=== PATIENT | female | born 1960 | race Caucasian/White ===

== ENCOUNTER 2023-11-26 01:30 | Inpatient (IN) | payer MEDICARE, OTHER ==
[~2023-11-26] VITALS: Ht 162.6 cm; Wt 52.2 kg
[2023-11-26] MEDS ORDERED: methylPREDNISolone SOD SUCC 125 MG/2ML VIAL ONE (01:33)
[2023-11-26] MEDS ORDERED: IPRATROPIUM NEB FS 0.5 MG/2.5 ML AMPUL.NEB ONE (01:34)
[2023-11-26] MEDS ORDERED: ALBUTEROL FS 2.5 MG/3 ML VIAL.NEB ONE (01:34)
[2023-11-26] MEDS ORDERED: NALOXONE HCL 0.4 MG/ML AMPUL ONE (01:36)
[2023-11-26] MEDS ORDERED: ONDANSETRON HCL/PF 4 MG/2 ML VIAL ONE (01:36)
[2023-11-26] MEDS: ONDANSETRON HCL/PF 4 MG/2 ML VIAL IVP ONE (02:05)
[2023-11-26] MEDS: NALOXONE HCL 0.4 MG/ML AMPUL IV ONE (02:05)
[2023-11-26] MEDS: methylPREDNISolone SOD SUCC 125 MG/2ML VIAL IV ONE (02:05)
[2023-11-26 02:06] LABS: SITE, VBG Other; VBG BASE EXCESS -14.3 mmol/L (-3-3); VBG COHb 1.5 %; VBG MetHb 0.4 %; VBG O2Hb 56.5 %; VBG OXYGEN SATURATION 57.6 %; VBG PCO2 80.5 mmHg (40-52); VBG PH 6.984 (7.31-7.41); VBG PO2 40.1 mmHg (30-50); VBG TOTAL HEMOGLOBIN 14.6 G/dL (12.0-16.0); VENT MODE, VBG st 18/8 rr18 100%
[2023-11-26 02:17] LABS: BASOPHILS # (AUTO) 0.1 K/uL (0.0-0.2); EOSINOPHILS # (AUTO) 1.5 K/uL (0.0-0.7); EOSINOPHILS % (AUTO) 11.6 % (0.0-6.0); HEMATOCRIT 42 % (33-45); HEMOGLOBIN 13.7 g/dL (11.5-14.8); LYMPHOCYTES # (AUTO) 7.2 K/uL (0.8-4.8); LYMPHOCYTES % (AUTO) 56.9 % (20.0-44.0); MEAN CORPUSCULAR HEMOGLOBIN 31 PG (26.0-33.0); MEAN CORPUSCULAR HGB CONC 33 g/dl (31.0-36.0); MEAN CORPUSCULAR VOLUME 93 fL (82-100); MONOCYTES # (AUTO) 0.5 K/uL (0.1-1.30); MONOCYTES % (AUTO) 3.8 % (2.0-12.0); NEUTROPHILS # (AUTO) 3.4 K/uL (1.8-8.9); NEUTROPHILS % (AUTO) 26.7 % (43.0-81.0); PLATELET COUNT (AUTO) 244 K/uL (150-450); RED BLOOD CELL COUNT(AUTO) 4.48 MIL/uL (4.0-5.2); RED CELL DISTRIBUTION WIDTH 12.3 % (11.5-15.0); WHITE BLOOD COUNT (AUTO) 12.6 K/uL (4.3-11.0)
[2023-11-26 02:38] LABS: ALANINE AMINOTRANSFERASE 34 U/L (12-78); ALBUMIN 3.9 g/dL (3.4-5.0); ALKALINE PHOSPHATASE 104 U/L (46-116); ASPARTATE AMINOTRANSFERASE 32 U/L (15-37); BILIRUBIN,DIRECT 0.2 mg/dL (0.0-0.2); BILIRUBIN,TOTAL 0.5 mg/dL (0.2-1.0); CALCIUM, SERUM 9.6 mg/dL (8.5-10.1); CARBON DIOXIDE 21 mmol/L (21-32); CHLORIDE 99 mmol/L (98-107); CREATININE 1.3 mg/dL (0.6-1.3); GLUCOSE 135 mg/dL (74-106); POTASSIUM 4.3 mmol/L (3.5-5.1); SODIUM SERUM 138 mmol/L (136-145); TOTAL PROTEIN, SERUM 8.5 g/dL (6.4-8.2); UREA NITROGEN, BLOOD 31 mg/dL (7-18)
[2023-11-26 02:49] LABS: LACTIC ACID 10.4 mmol/L (0.4-2.0)
[2023-11-26] MEDS: IPRATROPIUM NEB FS 0.5 MG/2.5 ML AMPUL.NEB NEB ONE (03:01)
[2023-11-26] MEDS: ALBUTEROL FS 2.5 MG/3 ML VIAL.NEB NEB ONE (03:01)
[2023-11-26] MEDS: MEROPENEM 1,000 MG in IV NS 0.9% 100 ML IV ONE (03:30)
[2023-11-26] MEDS: IV NS 0.9% 1,000 ML BAG IV ONE (03:48)
[2023-11-26] MEDS ORDERED: MEROPENEM 1 G VIAL IV ONE (03:49)
[2023-11-26] MEDS ORDERED: VANCOMYCIN 1 GM /D5W 250 ML PB IV ONE (03:50)
[2023-11-26] MEDS ORDERED: IV NS 0.9% 250 ML IV ONE (03:51)
[2023-11-26] MEDS ORDERED: CT SWABBABLE VALVE TRANS SET 1 EA INFUS.SET MC ONE (03:51)
[2023-11-26] MEDS ORDERED: IOHEXOL-350 100 ML VIAL IV ONE (03:51)
[2023-11-26] MEDS: VANCOMYCIN 1 GM in IV D5W 250 ML IV ONE (04:25)
[2023-11-26] MEDS ORDERED: MAGNESIUM HYDROXIDE 30 ML UDC PO PRN (06:00)
[2023-11-26] MEDS ORDERED: ACETAMINOPHEN 325 MG TABLET PO PRN (06:00)
[2023-11-26] MEDS ORDERED: ONDANSETRON HCL/PF 4 MG/2 ML VIAL IVP PRN (06:00)
[2023-11-26] MEDS ORDERED: HYDROCODONE/APAP 5/325MG TABLET PO PRN (06:00)
[2023-11-26] MEDS ORDERED: MAG HYDROX/AL HYDROX/SIMETH 30 ML UDC PO PRN (06:00)
[2023-11-26] MEDS: ENOXAPARIN SODIUM 40 MG/0.4 ML DISP.SYRIN SQ SCH (06:00)
[2023-11-26] MEDS ORDERED: Z GUARD REMEDY 4 OZ OINT TP PRN (06:00)
[2023-11-26] MEDS ORDERED: ENOXAPARIN SODIUM 40 MG/0.4 ML DISP.SYRIN SQ ONE (07:22)
[2023-11-26] MEDS: PIPERACILLIN /TAZOBACTAM 3.375 G in IV D5W 100 ML IV SCH (07:36)
[2023-11-26] MEDS: PANTOPRAZOLE 40 MG TABLET.DR PO SCH (08:12)
[2023-11-26] MEDS ORDERED: PANTOPRAZOLE 40 MG TABLET.DR PO ONE (08:12)
[2023-11-26 08:30] VITALS: BP 125/77; TEMP 97.9; O2SAT 100
[2023-11-26] MEDS ORDERED: LORAZEPAM INJ 2 MG/ML VIAL IV PRN (08:30)
[2023-11-26] MEDS ORDERED: PROP10TA10 PO (08:37)
[2023-11-26] MEDS ORDERED: IPRATROPIUM NEB FS 0.5 MG/2.5 ML AMPUL.NEB NEB PRN (09:00)
[2023-11-26] MEDS ORDERED: ALBUTEROL FS 2.5 MG/3 ML VIAL.NEB NEB PRN (09:00)
[2023-11-26] MEDS: ESCITALOPRAM OXALATE (10 MG) 10 MG TABLET PO SCH (11:00)
[2023-11-26] MEDS: LORAZEPAM 1 MG TABLET PO PRN (11:12)
[2023-11-26 12:00] VITALS: BP 136/74; TEMP 98; O2SAT 99
[2023-11-26] MEDS: methylPREDNISolone SOD SUCC 40 MG/ML VIAL IV SCH (12:27)
[2023-11-26] MEDS: IV 1/2NS 1000 ML 1,000 ML IV PRN (14:52)
[2023-11-26 16:00] VITALS: BP 119/45; TEMP 97.8; O2SAT 96
[2023-11-26 20:00] VITALS: BP 117/73; TEMP 98.3; O2SAT 96
[2023-11-26 20:46] LABS: ABG OXYGEN SATURATION 95.6 % (92.0-98.5); ABG PCO2 40.9 mmHg (35.0-45.0); ABG PH 7.401 (7.350-7.450); ABG PO2 79.9 mmHg (75.0-100.0); ABG TOTAL HEMOGLOBIN 13.5 G/dL (12.0-16.0); AaDO2 100.4 mmHg; COHb 0.5 % (0.5-1.5); MetHb 0.1 % (0.0-1.5); SITE, ABG Left Radial; VENT MODE, BG 3 LPM NC
[2023-11-27] VITALS (10 sets, daily range): BP systolic 92–124; BP diastolic 52–69; TEMP 97.8–98.2; O2SAT 92–98
[2023-11-27] MEDS ORDERED: VANCOMYCIN 750 MG in IV D5W 250 ML IV SCH (04:00)
[2023-11-27] MEDS: VANCOMYCIN 750 MG in IV D5W 250 ML IV SCH (05:44)
[2023-11-27 06:18] LABS: ABG BASE EXCESS 0.4 mmol/L; ABG OXYGEN SATURATION 84.6 % (92.0-98.5); ABG PCO2 39.9 mmHg (35.0-45.0); ABG PH 7.413 (7.350-7.450); ABG PO2 46.2 mmHg (75.0-100.0); ABG TOTAL HEMOGLOBIN 12.7 G/dL (12.0-16.0); AaDO2 55.8 mmHg; COHb 0.3 % (0.5-1.5); MetHb 0.1 % (0.0-1.5); O2Hb 84.3 % (94.0-97.0); SITE, ABG Left Radial; VENT MODE, BG ROOM AIR
[2023-11-27 06:58] LABS: HEMATOCRIT 34 % (33-45); HEMOGLOBIN 11.7 g/dL (11.5-14.8); LYMPHOCYTES # (AUTO) 1.1 K/uL (0.8-4.8); LYMPHOCYTES % (AUTO) 6.5 % (20.0-44.0); MEAN CORPUSCULAR HEMOGLOBIN 30 PG (26.0-33.0); MEAN CORPUSCULAR HGB CONC 34 g/dl (31.0-36.0); MEAN CORPUSCULAR VOLUME 89 fL (82-100); MONOCYTES # (AUTO) 0.2 K/uL (0.1-1.30); MONOCYTES % (AUTO) 1.1 % (2.0-12.0); NEUTROPHILS # (AUTO) 15.8 K/uL (1.8-8.9); NEUTROPHILS % (AUTO) 92.4 % (43.0-81.0); PLATELET COUNT (AUTO) 187 K/uL (150-450); RED BLOOD CELL COUNT(AUTO) 3.85 MIL/uL (4.0-5.2); RED CELL DISTRIBUTION WIDTH 12.5 % (11.5-15.0); WHITE BLOOD COUNT (AUTO) 17.1 K/uL (4.3-11.0)
[2023-11-27 07:48] LABS: CALCIUM, SERUM 8.7 mg/dL (8.5-10.1); CREATININE 1.2 mg/dL (0.6-1.3); MAGNESIUM 1.3 mg/dL (1.8-2.4); PHOSPHORUS 2.6 mg/dL (2.5-4.9); POTASSIUM 3.8 mmol/L (3.5-5.1)
[2023-11-27 07:51] LABS: THYROID STIMULATING HORMONE 0.561 uIU/mL (0.358-3.74)
[2023-11-27 07:56] LABS: BARBITURATE, URINE NEGATIVE (NEGATIVE); BENZODIAZEPINE, URINE NEGATIVE (NEGATIVE); CANNABINOID, URINE NEGATIVE (NEGATIVE); COCCAINE, URINE NEGATIVE (NEGATIVE); PHENCYCLIDINE SCREEN,URINE NEGATIVE (NEGATIVE)
[2023-11-27 07:57] LABS: AMPHETAMINE, URINE POSITIVE (NEGATIVE); OPIATE, URINE POSITIVE (NEGATIVE)
[2023-11-27] MEDS ORDERED: MAGNESIUM OXIDE 400 MG TABLET PO ONE (10:00)
[2023-11-27] MEDS ORDERED: Magnesium 1GM/D5W 100ML PREMIX 100 ML IV SCH (10:00)
[2023-11-27] MEDS: ALBUTEROL FS 2.5 MG/3 ML VIAL.NEB NEB SCH (10:30)
[2023-11-27] MEDS: Magnesium 1GM/D5W 100ML PREMIX 100 ML IV SCH (11:17)
[2023-11-28] VITALS (10 sets, daily range): BP systolic 120–147; BP diastolic 60–81; TEMP 97.7–98.6; O2SAT 92–98
[2023-11-28] MEDS: PROPRANOLOL HCL 10 MG TABLET PO PRN (12:01)
[2023-11-28 17:01] LABS: HEMATOCRIT 36 % (33-45); HEMOGLOBIN 12.2 g/dL (11.5-14.8); LYMPHOCYTES # (AUTO) 0.8 K/uL (0.8-4.8); LYMPHOCYTES % (AUTO) 4.3 % (20.0-44.0); MEAN CORPUSCULAR HEMOGLOBIN 31 PG (26.0-33.0); MEAN CORPUSCULAR HGB CONC 34 g/dl (31.0-36.0); MEAN CORPUSCULAR VOLUME 89 fL (82-100); MONOCYTES # (AUTO) 0.2 K/uL (0.1-1.30); MONOCYTES % (AUTO) 1.2 % (2.0-12.0); NEUTROPHILS # (AUTO) 16.6 K/uL (1.8-8.9); NEUTROPHILS % (AUTO) 94.5 % (43.0-81.0); PLATELET COUNT (AUTO) 191 K/uL (150-450); RED CELL DISTRIBUTION WIDTH 12.5 % (11.5-15.0); WHITE BLOOD COUNT (AUTO) 17.5 K/uL (4.3-11.0)
[2023-11-28 17:28] LABS: CALCIUM, SERUM 9.2 mg/dL (8.5-10.1); CREATININE 1.2 mg/dL (0.6-1.3); POTASSIUM 4.2 mmol/L (3.5-5.1)
[2023-11-29] VITALS (11 sets, daily range): BP systolic 128–134; BP diastolic 61–82; TEMP 97.7–98.6; O2SAT 93–99
[2023-11-29 06:54] LABS: BASOPHILS % (AUTO) 0.1 % (0.0-2.0); HEMATOCRIT 34 % (33-45); HEMOGLOBIN 11.6 g/dL (11.5-14.8); LYMPHOCYTES # (AUTO) 0.9 K/uL (0.8-4.8); LYMPHOCYTES % (AUTO) 7.6 % (20.0-44.0); MEAN CORPUSCULAR HEMOGLOBIN 30 PG (26.0-33.0); MEAN CORPUSCULAR HGB CONC 34 g/dl (31.0-36.0); MEAN CORPUSCULAR VOLUME 89 fL (82-100); MONOCYTES # (AUTO) 0.4 K/uL (0.1-1.30); MONOCYTES % (AUTO) 3.2 % (2.0-12.0); NEUTROPHILS # (AUTO) 10.1 K/uL (1.8-8.9); NEUTROPHILS % (AUTO) 89.1 % (43.0-81.0); PLATELET COUNT (AUTO) 170 K/uL (150-450); RED BLOOD CELL COUNT(AUTO) 3.82 MIL/uL (4.0-5.2); RED CELL DISTRIBUTION WIDTH 12.5 % (11.5-15.0); WHITE BLOOD COUNT (AUTO) 11.4 K/uL (4.3-11.0)
[2023-11-29 07:12] LABS: CALCIUM, SERUM 8.7 mg/dL (8.5-10.1); POTASSIUM 3.6 mmol/L (3.5-5.1)
[2023-11-29] MEDS ORDERED: ALBUT2 NEB (13:32)
[2023-11-29] MEDS ORDERED: PIPE3.379 IV (13:32)
[2023-11-29] MEDS ORDERED: IPRA0.2S9 NEB (13:32)
[2023-11-29] MEDS ORDERED: ESCI10TA PO (13:32)
[2023-11-29] MEDS ORDERED: methylPREDNISolone SOD SUCC IV (13:32)
[2023-11-29] MEDS ORDERED: METH40VI32 IV (13:32)
[2023-11-29] MEDS ORDERED: PANT40TA49 PO (13:32)
[2023-11-29] MEDS ORDERED: ACET325T53 PO (13:32)
[2023-11-29] MEDS: methylPREDNISolone SOD SUCC 40 MG/ML VIAL IV SCH (16:10)
[2023-11-30] VITALS (8 sets, daily range): BP systolic 132–154; BP diastolic 62–89; TEMP 97.9–98.3; O2SAT 95–99
[2023-11-30 07:51] LABS: HEMATOCRIT 38 % (33-45); HEMOGLOBIN 12.9 g/dL (11.5-14.8); LYMPHOCYTES # (AUTO) 1.5 K/uL (0.8-4.8); LYMPHOCYTES % (AUTO) 17.9 % (20.0-44.0); MEAN CORPUSCULAR HEMOGLOBIN 31 PG (26.0-33.0); MEAN CORPUSCULAR HGB CONC 34 g/dl (31.0-36.0); MEAN CORPUSCULAR VOLUME 89 fL (82-100); MONOCYTES # (AUTO) 0.8 K/uL (0.1-1.30); MONOCYTES % (AUTO) 9.6 % (2.0-12.0); NEUTROPHILS # (AUTO) 6.3 K/uL (1.8-8.9); NEUTROPHILS % (AUTO) 72.5 % (43.0-81.0); PLATELET COUNT (AUTO) 174 K/uL (150-450); RED BLOOD CELL COUNT(AUTO) 4.23 MIL/uL (4.0-5.2); RED CELL DISTRIBUTION WIDTH 12.5 % (11.5-15.0); WHITE BLOOD COUNT (AUTO) 8.6 K/uL (4.3-11.0)
[2023-11-30 07:59] LABS: CALCIUM, SERUM 8.8 mg/dL (8.5-10.1); CREATININE 1.2 mg/dL (0.6-1.3); POTASSIUM 3.4 mmol/L (3.5-5.1)
[2023-11-30] MEDS ORDERED: PRED5TAB48 PO (08:46)
[2023-11-30] MEDS: methylPREDNISolone SOD SUCC 40 MG/ML VIAL IV SCH (08:47)
[2023-11-30] MEDS: POTASSIUM CHLORIDE 20 MEQ POWDER PACKET GT ONE (08:47)
[2023-12-01] VITALS (7 sets, daily range): BP systolic 128–145; BP diastolic 78–95; TEMP 97.9–98.1; O2SAT 93–98
[2023-12-01 06:47] LABS: BASOPHILS % (AUTO) 0.1 % (0.0-2.0); EOSINOPHILS % (AUTO) 0.1 % (0.0-6.0); HEMATOCRIT 33 % (33-45); HEMOGLOBIN 11.4 g/dL (11.5-14.8); LYMPHOCYTES # (AUTO) 2.5 K/uL (0.8-4.8); LYMPHOCYTES % (AUTO) 35.1 % (20.0-44.0); MEAN CORPUSCULAR HEMOGLOBIN 31 PG (26.0-33.0); MEAN CORPUSCULAR HGB CONC 35 g/dl (31.0-36.0); MEAN CORPUSCULAR VOLUME 89 fL (82-100); MONOCYTES # (AUTO) 0.6 K/uL (0.1-1.30); MONOCYTES % (AUTO) 8.6 % (2.0-12.0); NEUTROPHILS # (AUTO) 4.1 K/uL (1.8-8.9); NEUTROPHILS % (AUTO) 56.1 % (43.0-81.0); PLATELET COUNT (AUTO) 161 K/uL (150-450); RED BLOOD CELL COUNT(AUTO) 3.69 MIL/uL (4.0-5.2); RED CELL DISTRIBUTION WIDTH 12.1 % (11.5-15.0); WHITE BLOOD COUNT (AUTO) 7.3 K/uL (4.3-11.0)
[2023-12-01 07:01] LABS: CALCIUM, SERUM 8.4 mg/dL (8.5-10.1); CREATININE 1.4 mg/dL (0.6-1.3); POTASSIUM 3.7 mmol/L (3.5-5.1)
== END 2023-12-01 14:43 | DRG 917 ==
LOC: ER 01:34 → ICU 05:24 → TELE1 07:56 → MEDSG1 11-28 17:56
PROVIDERS: ADMIT Nurse Practitioner Acute Care; ATTEND Nurse Practitioner Acute Care
PROC: 5A09357 Assistance with Respiratory Ventilation, Less than 24 Consecutive Hours, Continuous Positive Airway Pressure (ICD-10-PCS; principal; 2023-11-26)
DX: T40.411A Poisoning by fentanyl or fentanyl analogs, accidental (unintentional), initial encounter (principal); A41.9 Sepsis, unspecified organism; G92.8 Other toxic encephalopathy; J96.01 Acute respiratory failure with hypoxia; J96.02 Acute respiratory failure with hypercapnia; J15.9 Unspecified bacterial pneumonia; I21.A1 Myocardial infarction type 2; J69.0 Pneumonitis due to inhalation of food and vomit; E87.20 Acidosis, unspecified; J45.901 Unspecified asthma with (acute) exacerbation; F33.2 Major depressive disorder, recurrent severe without psychotic features; I47.10 Supraventricular tachycardia, unspecified; F11.10 Opioid abuse, uncomplicated; F15.10 Other stimulant abuse, uncomplicated; F17.210 Nicotine dependence, cigarettes, uncomplicated; F20.9 Schizophrenia, unspecified; Z88.2 Allergy status to sulfonamides; Z20.822 Contact with and (suspected) exposure to COVID-19; Z71.6 Tobacco abuse counseling; F41.9 Anxiety disorder, unspecified; N28.9 Disorder of kidney and ureter, unspecified; J44.89 Other specified chronic obstructive pulmonary disease; E83.42 Hypomagnesemia; Y92.009 Unspecified place in unspecified non-institutional (private) residence as the place of occurrence of the external cause
CPT/HCPCS: 36415; 36600; 71045-TC; 80048-TC; 80061-TC; 80076-TC; 80202-TC; 82803-TC; 83605-TC; 83735-TC; 83880; 84100-TC; 84443-TC; 84484-TC; 85025-TC; 85378-TC; 87040-TC; 93307-TC; 93970-TC; 94799-TC; 97110-TC; 97530-TC; 99082-TC; A4223; G0378; J1650; J2185; J2310; J2405; J2543; J2920; J2930; J3370; J3371; J3475; J3490; J7030; J7050; J7060; Q9967

== ENCOUNTER 2024-04-06 11:57 | Emergency (ER) | payer BC, MEDICAID ==
[~2024-04-06] VITALS: Ht 162.6 cm; Wt 56.7 kg
[~2024-04-06 11:57] MED LIST: ACET325T53 PO; ALBUT2 NEB; ESCI10TA PO; IPRA0.2S9 NEB; PANT40TA49 PO; PIPE3.379 IV; PRED5TAB48 PO; PROP10TA10 PO
[2024-04-06 12:10] VITALS: TEMP 97.8
[2024-04-06] MEDS ORDERED: NALO4SPR BNOSTRILS (12:59)
[2024-04-06 15:09] VITALS: BP 132/74; O2SAT 99
== END 2024-04-06 14:55 | disposition home or self-care (01) ==
LOC: ER 11:57
DX: T40.411A Poisoning by fentanyl or fentanyl analogs, accidental (unintentional), initial encounter (principal); R06.83 Snoring; F17.200 Nicotine dependence, unspecified, uncomplicated; Z88.8 Allergy status to other drugs, medicaments and biological substances; Z88.2 Allergy status to sulfonamides; Z86.59 Personal history of other mental and behavioral disorders; Y92.89 Other specified places as the place of occurrence of the external cause

== ENCOUNTER 2024-09-09 21:26 | Emergency (ER) | payer BC, MEDICAID ==
[~2024-09-09] VITALS: Ht 162.6 cm; Wt 57.6 kg
[~2024-09-09 21:26] MED LIST changes: +NALO4SPR BNOSTRILS
[2024-09-09 22:31] VITALS: BP 133/88; TEMP 98.8
[2024-09-09] MEDS ORDERED: CLIN300C12 PO (23:31)
[2024-09-09 23:57] VITALS: O2SAT 100
== END 2024-09-09 23:58 | disposition home or self-care (01) ==
LOC: ER 21:44
DX: L02.416 Cutaneous abscess of left lower limb (principal); F17.200 Nicotine dependence, unspecified, uncomplicated; Z79.52 Long term (current) use of systemic steroids; Z79.899 Other long term (current) drug therapy; Z88.1 Allergy status to other antibiotic agents; Z88.2 Allergy status to sulfonamides; Z60.2 Problems related to living alone

== ENCOUNTER 2024-09-26 19:33 | Emergency (ER) | payer BC, MEDICAID ==
[~2024-09-26] VITALS: Ht 165.1 cm; Wt 74.8 kg
[~2024-09-26 19:33] MED LIST changes: +CLIN300C12 PO
[2024-09-26 22:47] VITALS: BP 125/89; TEMP 98.4; O2SAT 98
[2024-09-26] MEDS ORDERED: PERM60CR4 TP (23:12)
== END 2024-09-26 23:18 | disposition home or self-care (01) ==
LOC: ER 19:42
DX: B86 Scabies (principal); L02.416 Cutaneous abscess of left lower limb; F17.200 Nicotine dependence, unspecified, uncomplicated; Z79.52 Long term (current) use of systemic steroids; Z79.899 Other long term (current) drug therapy; Z88.1 Allergy status to other antibiotic agents; Z88.2 Allergy status to sulfonamides

== ENCOUNTER 2024-10-26 13:30 | Emergency (ER) | payer BC, MEDICAID ==
[~2024-10-26] VITALS: Ht 162.6 cm; Wt 56.7 kg
[~2024-10-26 13:30] MED LIST changes: +PERM60CR4 TP
[2024-10-26 14:01] VITALS: TEMP 98.3
[2024-10-26 16:12] LABS: BASOPHILS % (AUTO) 0.6 % (0.0-2.0); EOSINOPHILS % (AUTO) 0.1 % (0.0-6.0); HEMATOCRIT 41 % (33-45); HEMOGLOBIN 14.4 g/dL (11.5-14.8); LYMPHOCYTES # (AUTO) 1.2 K/uL (0.8-4.8); MEAN CORPUSCULAR HEMOGLOBIN 30 PG (26.0-33.0); MEAN CORPUSCULAR HGB CONC 35 g/dl (31.0-36.0); MEAN CORPUSCULAR VOLUME 85 fL (82-100); MONOCYTES # (AUTO) 0.4 K/uL (0.1-1.30); MONOCYTES % (AUTO) 5.9 % (2.0-12.0); NEUTROPHILS # (AUTO) 5.6 K/uL (1.8-8.9); NEUTROPHILS % (AUTO) 76.4 % (43.0-81.0); PLATELET COUNT (AUTO) 267 K/uL (150-450); RED BLOOD CELL COUNT(AUTO) 4.82 MIL/uL (4.0-5.2); WHITE BLOOD COUNT (AUTO) 7.3 K/uL (4.3-11.0)
[2024-10-26 16:23] LABS: CARBON DIOXIDE 32 mmol/L (21-32); CHLORIDE 101 mmol/L (98-107); CREATININE 1.3 mg/dL (0.6-1.3); GLUCOSE 116 mg/dL (74-106); POTASSIUM 4.2 mmol/L (3.5-5.1); SODIUM SERUM 139 mmol/L (136-145); UREA NITROGEN, BLOOD 21 mg/dL (7-18)
[2024-10-26 16:24] LABS: ALCOHOL, BLOOD < 3 mg/dL (0-10)
[2024-10-26 17:08] LABS: APPEARANCE,URINE SLIGHTLY CLOUDY (CLEAR); BILIRUBIN,URINE 1+ (NEGATIVE); BLOOD, URINE NEGATIVE Ery/uL (NEGATIVE); COLOR,URINE YELLOW (YELLOW); KETONES,URINE TRACE mg/dL (NEGATIVE); LEUKOCYTE ESTERASE ,URINE 2+ (NEGATIVE); NITRITE, URINE NEGATIVE (NEGATIVE); PROTEIN,URINE TRACE mg/dl (NEGATIVE); UGLUCOSE NEGATIVE (NEGATIVE)
[2024-10-26 17:22] LABS: ADD URINE CULTURE YES; BACTERIA,URINE 1+ /HPF (None Seen); BARBITURATE, URINE NEGATIVE (NEGATIVE); BENZODIAZEPINE, URINE NEGATIVE (NEGATIVE); CANNABINOID, URINE NEGATIVE (NEGATIVE); COCCAINE, URINE NEGATIVE (NEGATIVE); PHENCYCLIDINE SCREEN,URINE NEGATIVE (NEGATIVE); RBC,URINE 0-2 /HPF (0-2); WBC,URINE 21-50 /HPF (0-3)
[2024-10-26 17:23] LABS: CALCIUM OXALATE CRYSTALS,UR Moderate /HPF (None Seen)
[2024-10-26 17:29] LABS: AMPHETAMINE, URINE POSITIVE (NEGATIVE); OPIATE, URINE POSITIVE (NEGATIVE)
[2024-10-26] MEDS ORDERED: LORAZEPAM 4 MG/ML VIAL IV ONE (18:00)
[2024-10-26] MEDS ORDERED: LORAZEPAM 0.5 MG TABLET ONE (18:36)
[2024-10-26] MEDS: LORAZEPAM ORAL SOLN 2 MG/ML ORAL.CONC PO PRN (18:44)
[2024-10-26 19:00] VITALS: BP 174/106; O2SAT 99
[2024-10-26] MEDS ORDERED: NITROFURANTOIN/MONOHYDRATE MACROCRYSTALS 100 MG CAPSULE ONE (19:15)
[2024-10-26] MEDS: NITROFURANTOIN/MONOHYDRATE MACROCRYSTALS 100 MG CAPSULE PO ONE (19:34)
== END 2024-10-26 23:03 | disposition short-term general hospital (02) ==
LOC: ER 13:38
DX: G93.9 Disorder of brain, unspecified (principal); R41.89 Other symptoms and signs involving cognitive functions and awareness; R53.83 Other fatigue; F17.200 Nicotine dependence, unspecified, uncomplicated; R42 Dizziness and giddiness; Z79.52 Long term (current) use of systemic steroids; Z79.899 Other long term (current) drug therapy; Z88.1 Allergy status to other antibiotic agents; Z88.2 Allergy status to sulfonamides; Z20.822 Contact with and (suspected) exposure to COVID-19
CPT/HCPCS: 99285; 70450; 85025; 80048; 87086; 81001; 36415; 84443; 87426; 80320; 80307; J2060; G0480